=== PATIENT | male | born 1985 | race Caucasian/White ===

== ENCOUNTER 2020-09-21 04:31 | Emergency (ER) | payer OTHER ==
[~2020-09-21] VITALS: Ht 188 cm; Wt 88.0 kg
[2020-09-21 04:31] VITALS: BP 124/79
--- NOTE | 2020-09-21 04:57 | PHYS DOC ---
Adult General Chief Complaint Chief Complaint: SHOULDER INJURY HPI HPI Patient is a 35-year-old male who presents with a chief complaint of right shoulder pain. 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 States he caught it at about waist height, felt a sharp pain in the back and top of his right shoulder, 6 out of 10, relatively constant, worse with range of motion. Denies any other injuries. States he did not take any medicines. States his bank sales and service manager wanted him to come to the emergency department and drove him.. Review of Systems Review of Systems Review of systems otherwise unremarkable except noted in HPI Physical Exam Physical Exam Constitutional: Well developed, well nourished, no acute distress, non-toxic appearance. [] HENT: Normocephalic, atraumatic, Neck: Normal range of motion, no tenderness, supple, no stridor. [] Cardiovascular:Heart rate regular rhythm, no murmur [] Lungs & Thorax: No respiratory distress Back: No tenderness, Extremities: Tenderness in the right shoulder on lateral deltoid and across trapezius. Passive range of motion possible with patient endorsing discomfort. Neurovascular exam intact. No obvious bruising, or deformities. Neurologic: Alert and oriented X 3, no focal deficits noted. [] Psychologic: Affect normal, judgement normal, mood normal. [] EKG EKG [] Radiology/Procedures Radiology/Procedures [] Heart Score C/O Chest Pain: No Risk Factors: Risk Factors: DM, Current or recent (<one month) smoker, HTN, HLP, family history of CAD, obesity. Risk Scores: Risk Factors: DM, Current or recent (<one month) smoker, HTN, HLP, family history of CAD, obesity. Course & Med Decision Making Course & Med Decision Making Patient is a 35-year-old male who presents with right shoulder pain Vital signs not concerning. Physical exam noted above. Given Tylenol, ibuprofen and ice pack. Chest x-ray with no acute osseous abnormalities. Imaging with no acute osseous abnormalities. Placed in a sling. Gave recommendations for symptom control at home. Given information and education. Advised to follow-up tomorrow with primary care physician. Gave strict return precautions to the emergency department. Patient grateful, verbalized understanding and agreed with plan of discharge. Dragon Disclaimer Dragon Disclaimer This electronic medical record was generated, in whole or in part, using a voice recognition dictation system. Departure Departure: Impression: Primary Impression: Shoulder pain Disposition: HOME / SELF CARE / HOMELESS Condition: GOOD Referrals: PCP,JACQUES (PCP) MER UNGER MD Patient Instructions: Arm Sling Use, [id number], RICE - Routine Care for Injuries, Shoulder Pain Additional Instructions: Please read all the attached information very carefully. Please continue a Tylenol, ibuprofen and ice regimen as discussed and as long as you are able to tolerate. Please follow-up with your primary care physician first thing in the morning to update on your ED visit and help you along the course of treatment for your shoulder pain and clear you for full duty at work. Please come back to the emergency department immediately with new or concerning symptoms as discussed. BOZENA ALMENDAREZ MD September 21, 2020 04:57
[2020-09-21] MEDS ORDERED: ACETAMINOPHEN 500 MG TABLET PO ONE (05:00)
[2020-09-21] MEDS ORDERED: IBUPROFEN 600 MG TABLET. PO ONE (05:00)
--- NOTE | 2020-09-21 05:13 | RAD ---
Three views right shoulder History: pain Internally and externally rotated AP of shoulder obtained, as well as "Y" view. The glenohumeral relationship is normal. The visualized osseous structures appear normal. There is reticular opacities in the lungs. Impression: 1. No fracture or dislocation of the right shoulder. 2. Interstitial infiltrate could be atypical pneumonia. End impression Electronically signed by: Tyler Tenorio III, MD (09/21/2020 5:11 AM) [facility]
== END 2020-09-21 05:25 | disposition home or self-care (01) ==
LOC: ER 04:31
DX: M25.511 Pain in right shoulder (principal); W20.8XXA Other cause of strike by thrown, projected or falling object, initial encounter; Y93.89 Activity, other specified; Y92.89 Other specified places as the place of occurrence of the external cause; Y99.8 Other external cause status
CPT/HCPCS: 73030; 99283-25

== ENCOUNTER → 2021-08-06 | Outpatient (CLI) | payer OTHER ==
--- NOTE | 2021-08-06 10:39 | RAD ---
XR CHEST 2V History: Chest pain, syncope. Comparison: None. Technique: PA and lateral chest radiographs. Findings: The lungs are adequately and symmectrically inflated. No airspace consolidation, pleural effusion or pneumothorax. The cardiomediastinal silhoutte and pulmonary vasculature are within normal limits. Sof t tissues and osseous structures are unremarkable. Impression: 1. No acute cardiopulmonary process. Electronically signed by: Justyn Ayala MD (08/06/2021 10:36 AM) [id number]
== END ==
LOC: RAD 07:50
PROVIDERS: ATTEND Physician Assistant Medical
DX: R07.9 Chest pain, unspecified (principal)
CPT/HCPCS: 71046